=== PATIENT | male | born 1950 | race Asian ===

== ENCOUNTER 2025-03-16 13:04 | Outpatient (AMB) | payer BC, SELFPAY ==
--- NOTE | 2025-03-16 13:11 | A.OFFPC_ITS ---
Vital Signs 03/16/25 13:13 Height 5 ft 8.5 in Weight 167 lb 6 oz BMI 25.1 BP 110/68 Blood Pressure Location Lt brachial Position Sitting Pulse 86 Pulse Source Pulse Oximeter Temp 96.6 F L Temp Source Temporal Artery Scan Pulse Oximetry (%) 97 Oxygen Delivery Method Room Air Intake Visit Reasons: Asthma Intake Note: Patient is a new patient here to establish care for Asthma, DM, Cholesterol, [place], Depression, Enlarge prostate. Transferring care from Dr Bryan Carnes ([facility]). Medical records have been requested and have received. Requesting referral to Pulmonary and Eye drHortensia Pad Machine Feeder Required: No Supervisor Production Department: Present Accompanied by: Spouse Allergies No Known Allergies Allergy (Verified 03/16/25 13:24) Medication List - Last Reconciled 03/16/25 by Saritha Murry MD albuterol sulfate 90 mcg/actuation (Ventolin HFA) 2 puffs inhalation Q6H PRN atorvastatin 20 mg PO DAILY blood sugar diagnostic (FreeStyle Lite Strips) test blood sugars once a day fluticasone propion-salmeterol 500-50 mcg/dose (Wixela Inhub) 1 inh inhalation BID lancets (FreeStyle Lancets) test blood sugar once a day latanoprost 0.005% 1 drp ophthalmic (eye) DAILY metformin 1,000 mg PO BID montelukast 10 mg PO BEDTIME paroxetine HCl 30 mg PO DAILY semaglutide (Ozempic) 2 mg subcut QWEEK tamsulosin 0.4 mg PO DAILY Tobacco use date assessed: 03/16/25 Fall risk assessment: No Falls in past year Last assessed Fall Risk: 03/16/25 Dental Screening Dental Screen Date: 03/16/25 Did you have a dental visit in the last 12 months?: No Did you have a dental problem in the last 6 months where you did not have access to dental care?: No Was dental information given to patient?: No HPI HPI Comments History of Present Illness Details Patient is a 74-year-old male with a history of asthma, type 2 diabetes, hyperlipidemia, depression, BPH presenting to establish care. The patient has a long-standing history of asthma, managed with a Wixela inhaler twice daily and an albuterol inhaler as needed. He reports frequent use of his albuterol inhaler, sometimes up to 4-5 times per day, though not every day. Reportedly, previous workups included sputum samples that were negative, an evaluation in 2020 that suggested cat allergies which the patient doubts, and a later evaluation in [place] that identified and treated a mycobacterial infection without symptom resolution. The patient also has a history of type 2 diabetes mellitus, managed with metformin 1 g twice daily and Ozempic 2 mg weekly. His last HbA1c in January 2025 was 5.8%. His last diabetic eye exam was one to two years ago. His other chronic conditions include hyperlipidemia treated with atorvastatin 20 mg, depression treated with paroxetine 30 mg, and benign prostatic hyperplasia treated with tamsulosin. His father has a history of prostate cancer in his father at age 90. The patient denies any history of smoking and denies use of marijuana or other illicit drugs. He reports drinking one glass of wine approximately three times a week. He is up to date on his pneumonia vaccinations but declined a flu shot for this season. [facility] Surgical History (Updated 03/16/25 @ 13:32 by DONOVAN Ruby) History of wisdom tooth extraction Social History (Updated 03/16/25 @ 13:32 by DONOVAN Ruby) Housing: Apartment Alcohol intake: current Alcohol intake frequency: a few times a week Alcohol type: wine Patient Tobacco Use Status: Never used Tobacco e-Cigarette/Vaping Use: Never Used Second Hand Smoke Exposure: No service: No Current occupational status: retired Cognitive needs: No Hearing needs: Yes (Hearing aide) Vision needs: Yes (Glasses) Questionnaire PHQ-9 Over the last 2 weeks, how often have you been bothered by any of the following problems? 1. Little interest or pleasure in doing things: not at all 2. Feeling down, depressed, or hopeless: not at all 3. Trouble falling or staying asleep, or sleeping too much: not at all 4. Feeling tired or having little energy: not at all 5. Poor appetite or overeating: not at all 6. Feeling bad about yourself - or that you are a failure or have let yourself or your family down: not at all 7. Trouble concentrating on things, such as reading the newspaper or watching television: not at all 8. Moving or speaking so slowly that other people could have noticed. Or the opposite - being so fidgety or restless that you have been moving around a lot more than usual: not at all 9. Thoughts that you would be better off or of hurting yourself in some way: not at all Total score: 0 Depression Screening Interpretation: Negative Depression Screening Done: Yes Source: Developed by Drs. Erasmo Lott, Lizet Ruth, Mario Perez and colleagues, with an educational clifford from [employer]. Thrive Questionnaire Date Thrive assessed: 03/16/25 I am a: Patient What is your living situation today?: I have a steady place to live Within the past 12 months, did the food you bought not last and you didn't have the money to get more?: Never true Within the past 12 months, did you worry whether your food would run out before you got money to buy more?: Never true Do you have trouble paying for medicines?: No Do you have trouble getting transportation to medical appointments?: No Do you have trouble paying your heating and electricity bill?: No Do you have trouble taking care of your child, family member or friend?: No Do you have trouble with day-to-day activities such as bathing, preparing meals, shopping, managing finances, etc.?: No Are you currently unemployed and looking for a job?: No Are you interested in more education?: No Please select the resources that you would like help with: None Currently or been in a relationship where the following occur: No concerns reported THRIVE Score: 0 AUDIT C Alcohol Use Questionnaire (AUDIT-C) 1. How often do you have a drink containing alcohol?: 2-3 times a week 2. How many drinks containing alcohol do you have on a typical day when you are drinking?: 1 or 2 3. How often do you have six or more drinks on one occasion?: Never Total Score: 3 REGGIE-7 AMB Questionnaire REGGIE-7 Date REGGIE - 7 assessed: 03/16/25 Feeling nervous, anxious, or on edge: 0 = Not at all Not being able to stop or control worryin = Not at all Worrying too much about different things: 0 = Not at all Trouble relaxin = Not at all Being so restless that it is hard to sit still: 0 = Not at all Becoming easily annoyed or irritable: 0 = Not at all Feeling afraid as if something awful might happen: 0 = Not at all Total REGGIE-7 score (0-4 normal; 5-9 mild; 10-14 moderate; 15-21 severe): 0 Source: Developed by Drs. Erasmo Lott, Lizet Ruth, Mario Perez and colleagues, with an educational clifford from [employer]. Physical exam (Primary Care) Vital Signs: Last Vital Signs Temp 96.6 F L 03/16/25 13:13 Pulse 86 03/16/25 13:13 BP 110/68 03/16/25 13:13 Pulse Ox 97 03/16/25 13:13 Oxygen Delivery Method Room Air 03/16/25 13:13 General: Well-appearing, alert, oriented ?3, in no acute distress. Cardiovascular: RRR, S1-S2 appreciated, no murmurs, rubs or gallops. Respiratory: Diffuse expiratory wheezes appreciated on lung auscultation, no wheezes, rales or rhonchi. BMI result Body Mass Index 25.1 Tobacco/Smoking Status: Tobacco use Status Tobacco use date assessed 03/16/25 03/16/25 13:34 Patient Tobacco Use Status Never used Tobacco 03/16/25 13:34 e-Cigarette/Vaping Use Never Used 03/16/25 13:34 PHQ-9: PHQ-9 Score PHQ-9: Total score 0 03/16/25 13:34 Depression Screening Interpretation: Negative Thrive Assessment: Date of Thrive Assessment Date Thrive assessed 03/16/25 03/16/25 13:34 Currently or been in a relationship where the following occur: No concerns reported Coding Level of Care Code New Pt Level 4 (65041) Diagnoses Type 2 diabetes mellitus without complication, without long-term current use of insulin E11.9 Diabetes mellitus research hydrologist insulin use: without research hydrologist use Diabetes mellitus complication status: without complication Hyperlipidemia, unspecified hyperlipidemia type E78.5 Hyperlipidemia type: unspecified Uncomplicated asthma, unspecified asthma severity, unspecified whether persistent J45.909 Asthma severity: unspecified severity Asthma persistence: unspecified Asthma complication type: uncomplicated Depression, unspecified depression type F32.A Depression Type: unspecified Benign prostatic hyperplasia, unspecified whether lower urinary tract symptoms present N40.0 Lower urinary tract symptom presence: unspecified whether lower urinary tract symptoms present Assessment & Plan Assessment & Plan (1) Type 2 diabetes mellitus: Code(s): E11.9 - Type 2 diabetes mellitus without complications Category: Medical Qualifiers: Diabetes mellitus research hydrologist insulin use: without research hydrologist use Diabetes mellitus complication status: without complication Qualified Code(s): E11.9 - Type 2 diabetes mellitus without complications Plan: On metformin 1000 mg b.i.d. and Ozempic 2 mg weekly January 2025: A1c was 5.8, urine microalbumin with a normal limit Last eye exam was more than a year ago Refer to Ophthalmology for diabetic eye exam (2) Hyperlipidemia: Code(s): E78.5 - Hyperlipidemia, unspecified Category: Medical Qualifiers: Hyperlipidemia type: unspecified Qualified Code(s): E78.5 - Hyperlipidemia, unspecified Plan: On atorvastatin 20 mg Lipid panel from January 2025 within normal limits (3) Asthma: Code(s): J45.909 - Unspecified asthma, uncomplicated Category: Medical Qualifiers: Asthma severity: unspecified severity Asthma persistence: unspecified Asthma complication type: uncomplicated Qualified Code(s): J45.909 - Unspecified asthma, uncomplicated Plan: Currently on Wixela inhaler twice daily and albuterol as needed. Patient reports frequent use of his albuterol inhaler. Physical exam notable for mild expiratory wheezes. Referral to pulmonology provided for further evaluation management optimization Patient reports he is up-to-date with pneumonia vaccine. Declines flu vaccine today. (4) Depression: Code(s): F32.A - Depression, unspecified Category: Medical Qualifiers: Depression Type: unspecified Qualified Code(s): F32.A - Depression, unspecified Plan: On paroxetine 30 mg daily. PHQ-9 score today of 0 (5) BPH (benign prostatic hyperplasia): Code(s): N40.0 - Benign prostatic hyperplasia without lower urinary tract symptoms Category: Medical Qualifiers: Lower urinary tract symptom presence: unspecified whether lower urinary tract symptoms present Qualified Code(s): N40.0 - Benign prostatic hyperplasia without lower urinary tract symptoms Plan: On tamsulosin 0.4 mg daily PSA from June 2023 was within normal limits Orders: Referrals Pulmonology Referral J45.909 - Unspecified asthma, uncomplicated Ophthalmology Referral E11.9 - Type 2 diabetes mellitus without complications, Z01.00 - Encounter for examination of eyes and vision without abnormal findings
[2025-03-16 13:13] VITALS: BP 110/68; PULSE 86; TEMP 35.9; O2SAT 97; BMI 25.1
--- OUTSIDE RECORDS SUMMARY | 2025-03-16 16:58 | XMS_ITS | Encounter Summary ---
Author Organization [facility] Address [address] [place] [address] Care Team Providers Care Automatic Blocker Name Role Phone Jazmín Charlton MD Primary Care Provider [phone] Reason for Visit * Reason Comments Medication Refill Encounter Details Date Type Department Care Team (Late st Contact Info) Description 08/30/2020 Refill [facility] [place] [address] [place] [address] Jazmín Charlton MD [address] [facility] [address] [place] [address] Medication Refill Social History Tobacco Use Types Packs/Day Years Used Date Smoking Tobacco: Never Smokeless Tobacco: Never Alcohol Use Standard Drinks/Week Comments Not Currently 0 (1 standard drink = 0.6 oz pur e alcohol) PHQ-2 Answer Date Recorded PHQ-2 Total Score 0 01/22/2020 Sex and Gender Information Value Date Recorded Sex Assigned at Male 03/21/2020 3:41 AM EST Legal Sex Male 12:52 PM EDT Gender Identity Male 03/21/2020 3:41 AM EST Sexual Orientation Not on file documented as of this encounter Miscellaneous Notes * Telephone Encounter - Naila Rm - 08/31/2020 8:16 AM EDT Last visit 02/2020; appointment 01/2021 documented in this encounter Plan of Treatment Not on file documented as of this encounter Visit Diagnoses Diagnosis Gout, unspecified cause, unspecified chronicity, unspecified site documented in this encounter Additional Health Concerns Assessment Noted Time PHQ-9 Depression Total Score: 0 01/22/20 20 8:19 AM EST documented as of this encounter Care Teams Automatic Blocker Relationship Specialty Start Date End Date Jazmín Charlton MD [address] [address] [place] [phone] PCP - General Internal Medicine 11/17/19 01/16/21 documented as of this encounter
--- OUTSIDE RECORDS SUMMARY | 2025-03-16 16:58 | XMS_ITS | Encounter Summary ---
Author Organization [facility] Address [address] [place] [address] Care Team Providers Care Hospital Food Service Worker Name Role Phone Jazmín Charlton MD Primary Care Provider [phone] Encounter Details Date Type Department Care Team (Late st Contact Info) Description 02/16/2020 Scanned Document [facility] [place] [address] [place] [address] Jazmín Charlton MD [address] [address] Social History Tobacco Use Types Packs/Day Years [...] on file documented as of this encounter Plan of Treatment Not on file documented as of this encounter Visit Diagnoses Not on filedocumented in this encounter Additional Health Concerns Assessment Noted Time PHQ-9 Depression Total Score: 0 01/22/20 20 8:19 AM EST documented as of this encounter Care Teams Hospital Food Service Worker Relationship Specialty Start Date End Date Jazmín Charlton MD [address] [address] PCP - General Internal Medicine 11/17/19 01/16/21 documented as of this encounter
--- OUTSIDE RECORDS SUMMARY | 2025-03-16 16:58 | XMS_ITS | Encounter Summary ---
Author Organization [facility] Address [address] [place] [address] Care Team Providers Care Casting Carrier Name Role Phone Unavailable Primary Care Provider Unavailabl e Reason for Visit * Reason Comments Medication Refill Encounter Details Date Type Department Care Team (Late st Contact Info) Description 01/25/2021 Refill [facility] [place] [address] [place] [address] Jazmín Charlton MD [address] [facility] [address] [place] [address] Medication Refill Social History Tobacco [...] encounter Miscellaneous Notes * Telephone Encounter - Fabiola Jimenez - 01/27/2021 7:01 AM EST not your patient * Telephone Encounter - Beverley Bond - 01/26/2021 8:20 AM EST Pt was last seen 02/19/20 documented in this encounter Plan of Treatment Not on file documented as of this encounter Visit Diagnoses Diagnosis Gout, unspecified cause, unspecified chronicity, unspecified site documented in this encounter Additional Health Concerns Assessment Noted Time PHQ-9 Depression Total Score: 0 01/22/20 8:19 AM EST documented as of this encounter
--- OUTSIDE RECORDS SUMMARY | 2025-03-16 16:58 | XMS_ITS | Encounter Summary ---
Author Organization [facility] Address [address] [place] [address] Care Team Providers Care Grinder Set Up Operator Thread Tool Name Role Phone Jazmín Charlton MD Primary Care Provider [phone] Encounter Details Date Type Department Care Team (Late st Contact Info) Description 01/25/2020 Scanned Document [facility] [place] [address] [place] [address] External, Provider Social History Tobacco Use Types Packs/Day Years [...] on file documented as of this encounter Procedures Procedure Name Priority Date/Time Associated Diagnosis Comments COLONOSCOPY Routine 01/29/2017 documented in this encounter Results * HM COLONOSCOPY (01/29/2017) us Provider External HEALTH MAINTENANCE Final Resul t documented in this encounter Visit Diagnoses Not on filedocumented in this encounter Additional Health Concerns Assessment Noted Time PHQ-9 Depression Total Score: 0 01/22/20 20 8:19 AM EST documented as of this encounter Care Teams Grinder Set Up Operator Thread Tool Relationship Specialty Start Date End Date Jazmín Charlton MD [address] [facility] [address] [place] [id number] PCP - General Internal Medicine 11/17/19 01/16/21 documented as of this encounter
--- OUTSIDE RECORDS SUMMARY | 2025-03-16 16:58 | XMS_ITS | Encounter Summary ---
Author Organization [facility] Address [address] [place] [address] Care Team Providers Care Director Of Integrated Marketing Name Role Phone Jazmín Charlton MD Primary Care Provider [phone] Reason for Visit * Reason Comments Medication Refill Encounter Details Date Type Department Care Team (Late st Contact Info) Description 04/29/2020 Refill [facility] [place] [address] [place] [address] Jazmín Charlton MD [address] [facility] [address] [place] [address] Medication Refill Social History Tobacco [...] * Telephone Encounter - Naila Rm - 04/29/2020 7:51 AM EST Last visit 02/19/2020; appointment 01/24/2021 documented in this encounter Plan of Treatment Not on file documented as of this encounter Visit Diagnoses Diagnosis Type 2 diabetes mellitus without complication, with long-term current use of insulin (HC CODE) documented in this encounter Additional Health Concerns Assessment Noted Time PHQ-9 Depression Total Score: 0 01/22/20 20 8:19 AM EST documented as of this encounter Care Teams Director Of Integrated Marketing Relationship Specialty Start Date End Date Jazmín Charlton MD [address] [facility] [address] [place] [phone] PCP - General Internal Medicine 11/17/19 01/16/21 documented as of this encounter
--- OUTSIDE RECORDS SUMMARY | 2025-03-16 16:58 | XMS_ITS | Encounter Summary ---
Author Organization [facility] Address [address] [place] [address] Care Team Providers Care Craft Demonstrator Name Role Phone Jazmín Charlton MD Primary Care Provider [phone] Reason for Visit * Reason Comments Medication Refill Encounter Details Date Type Department Care Team (Late st Contact Info) Description 12/14/2020 Refill [facility] [place] [address] [place] [address] Jazmín Charlton MD [address] [facility] [address] [place] [address] Medication Refill Social History Tobacco [...] encounter Miscellaneous Notes * Telephone Encounter - Yesenia Montano - 12/15/2020 9:10 AM EDT Last office visit: 02/19/2020 Next office visit: 01/24/2021 Lab Results Component Value Date HGBA1C 6.5 01/18/2020 Lab Results Component Value Date GLU 157 (H) 01/18/2020 CREATININE 0.98 01/18/2020 Lab Results Component Value Date WBC 5.0 01/18/2020 HGB 12.8 (L) 01/18/2020 HCT 44.8 01/18/2020 MCV 77.9 (L) 01/18/2020 PLT 252 01/18/2020 Lab Results Component Value Date NA 143 01/18/2020 K 4.5 01/18/2020 AST 13 01/18/2020 ALT 36 01/18/2020 Lab Results Component Value Date TSH 3.260 01/18/2020 [id number] [place] [place] - [facility] documented in this encounter Plan of Treatment Not on file documented as of this encounter Visit Diagnoses Not on filedocumented in this encounter Additional Health Concerns Assessment Noted Time PHQ-9 Depression Total Score: 0 01/22/20 20 8:19 AM EST documented as of this encounter Care Teams Craft Demonstrator Relationship Specialty Start Date End Date Jazmín Charlton MD [address] [phone] PCP - General Internal Medicine 11/17/19 01/16/21 documented as of this encounter
--- OUTSIDE RECORDS SUMMARY | 2025-03-16 16:58 | XMS_ITS | Encounter Summary ---
Author Organization [facility] Address [address] [place] [address] Care Team Providers Care Behavioral Psychologist Name Role Phone Jazmín Charlton MD Primary Care Provider [phone] Reason for Visit * Reason Comments Medication Refill Encounter Details Date Type Department Care Team (Late st Contact Info) Description 10/31/2020 Refill [facility] [place] [address] [place] [address] Jazmín Charlton MD [address] [facility] [address] [place] [address] Medication Refill Social History Tobacco [...] * Telephone Encounter - Naila Rm - 10/31/2020 11:58 AM EDT Last visit 02/2020; appointment 01/2021 [...] documented as of this encounter Care Teams Behavioral Psychologist Relationship Specialty Start Date End Date Jazmín Charlton MD [address] [facility] [address] [place] [address] PCP - General Internal Medicine 11/17/19 01/16/21 documented as of this encounter
--- OUTSIDE RECORDS SUMMARY | 2025-03-16 16:58 | XMS_ITS | Encounter Summary ---
Author Organization [facility] Address [address] [place] [address] Care Team Providers Care Pharmacist Assistant Name Role Phone Jazmín Charlton MD Primary Care Provider + [phone] Reason for Visit * Reason Comments Medication Refill Encounter Details Date Type Department Care Team (Late st Contact Info) Description 08/17/2020 Refill [facility] [place] [address] [place] [address] Jazmín Charlton MD [address] [place] [address] [place] [address] Medication Refill Social History Tobacco Use Types [...] documented as of this encounter Care Teams Pharmacist Assistant Relationship Specialty Start Date End Date Jazmín Charlton MD [address] [place] [address] [place] [address] PCP - General Internal Medicine 11/17/19 01/16/21 documented as of this encounter
--- OUTSIDE RECORDS SUMMARY | 2025-03-16 16:58 | XMS_ITS | Encounter Summary ---
Author Organization [facility] Address [address] [place] [address] Care Team Providers Care Graves Registration Specialist Name Role Phone Jazmín Charlton MD Primary Care Provider [phone] Reason for Visit * Reason Comments Medication Refill Encounter Details Date Type Department Care Team (Late st Contact Info) Description 04/01/2020 Refill [facility] [place] [address] [place] [address] Jazmín Charlton MD [address] [facility] [address] [place] [address] Medication Refill Social History Tobacco [...] encounter Miscellaneous Notes * Telephone Encounter - aNila Rm - 04/01/2020 8:28 AM EST Last visit 02/19/2020; appointment 01/24/2021 documented in this encounter Plan of Treatment Not on file documented as of this encounter Visit Diagnoses Diagnosis Gout, unspecified cause, unspecified chronicity, unspecified site documented in this encounter Additional Health Concerns Assessment Noted Time PHQ-9 Depression Total Score: 0 01/22/20 20 8:19 AM EST documented as of this encounter Care Teams Graves Registration Specialist Relationship Specialty Start Date End Date Jazmín Charlton MD [address] [facility] [address] [place] [address] PCP - General Internal Medicine 11/17/19 01/16/21 documented as of this encounter
--- OUTSIDE RECORDS SUMMARY | 2025-03-16 16:58 | XMS_ITS | Encounter Summary ---
Author Organization [facility] Address [address] [place] [address] Care Team Providers Care Kennel Supervisor Name Role Phone Jazmín Charlton MD Primary Care Provider [phone] Reason for Visit * Reason Comments Medication Refill Encounter Details Date Type Department Care Team (Late st Contact Info) Description 01/09/2021 Refill [facility] [place] [address] [place] [address] Jazmín Charlton MD [address] [facility] [address] [place] [address] Medication Refill Social History Tobacco [...] * Telephone Encounter - Fabiola Jimenez - 01/09/2021 3:17 PM EDT Message from the Clamshell Operator - MEDICATION REFILLS Time of Call: 3:17 PM Confirmed w/ Patient Preferred Pharmacy: [facility]/pharmacy #[id number] - [place], [place] - [address] [facility] [address] [place] Last office visit: 02/19/2020 Next office visit: 01/24/2021 Please give us 24 hours to respond to your request. Patient was reminded to contact their preferred pharmacy for further electronic refills. Patient was encouraged to set up a [employer] account to request electronic refills in the future. Forward this message to CLIFFORD Ramires. documented in this encounter Plan of Treatment Not on file documented as of this encounter Visit Diagnoses Not on filedocumented in this encounter Additional Health Concerns Assessment Noted Time PHQ-9 Depression Total Score: 0 01/22/20 20 8:19 AM EST documented as of this encounter Care Teams Kennel Supervisor Relationship Specialty Start Date End Date Jazmín Charlton MD [address] [id number] PCP - General Internal Medicine 11/17/19 01/16/21 documented as of this encounter
--- OUTSIDE RECORDS SUMMARY | 2025-03-16 16:58 | XMS_ITS | Encounter Summary ---
Author Organization [facility] Address [address] [place] [address] Care Team Providers Care Railway Signalling Engineer Name Role Phone Unavailable Primary Care Provider Unavailabl e Reason for Visit * Reason Comments Medication Refill Encounter Details Date Type Department Care Team (Late st Contact Info) Description 02/26/2021 Refill [facility] [place] [address] [place] [address] [facility]azmín [facility]ton MD [address] [facility] [address] [place] [address] Medication Refill Social History Tobacco [...] * Telephone Encounter - Fabiola Jimenez - 02/27/2021 9:22 AM EST No ;onger your patient * Telephone Encounter - Fabiola Jimenez - 02/27/2021 9:20 AM EST Message from the Financial Reporting Specialist - MEDICATION REFILLS Time of Call: 9:20 AM Confirmed w/ Patient Preferred Pharmacy: [id number] - [place], [place] - [address] [facility] [employer] [place] Not a patient Please give us 24 hours to respond to your request. Patient was reminded to contact their preferred pharmacy for further electronic refills. Patient was encouraged to set up a [employer] account to request electronic refills in the [...]
--- OUTSIDE RECORDS SUMMARY | 2025-03-16 16:58 | XMS_ITS | Clinical Summary ---
Author Organization [address] Address [address] [place] [address] Phone Care Team Providers Care Skirt Maker Name Role Phone Unavailable Primary Care Provider Unavailabl e Allergies Active Allergy Reactions Criticality Noted Date Comments Hay Fever And Allergy Relief Congestion 020 Penicillins Unknown 12/01/2018 Medications ADVAIR DISKUS 500-50 mcg/dose blister powder for inhalation 0 Active albuterol sulfate 90 mcg/actuation HFA aerosol inhaler 0 Active lancets Daily Use as directed. Delca lancet 100 each 3 0 Active lancets 30 gauge Misc lancetsIndicatio ns:Type 2 diabetes mellitus without complication, with long-term current use of insulin (HC CODE) Test glucose daily Dx E11.8 100 each 3 1 Active blood sugar diagnostic test stripsIndication s:Type 2 diabetes mellitus without complication, with long-term current use of insulin (HC CODE) Test glucose Daily Dx: E11.8 100 each 3 1 Active allopurinoL (ZYLOPRIM) 300 mg tabletIndication s:Gout, unspecified cause, unspecified chronicity, unspecified site TAKE 1 TABLET EVERY DAY 90 tablet 1 1 Active metFORMIN (GLUCOPHAGE) 1000 mg tabletIndication s:Type 2 diabetes mellitus without complication, with long-term current use of insulin (HC CODE) TAKE 1 TABLET TWICE DAILY WITH BREAKFAST AND WITH DINNER 180 tablet 1 1 Active PARoxetine (PAXIL) 20 mg tablet TAKE 1 TABLET EVERY MORNING 90 tablet 1 Active montelukast (SINGULAIR) 10 mg tablet TAKE 1 TABLET EVERY NIGHT 90 tablet 1 1 Active Active Problems Problem Noted Date Diagnosed Date Asthma 09/08/2018 Diabetes 08/09/2017 Radial styloid tenosynovitis 08/09/2017 Acute depression 08/09/2017 Immunizations Immunization Administration Dates Next Due Influenza, quad, adjuvanted, 0.5mL, preservative free 11/27/2019 Pneumococcal polysaccharide PPSV23 11/20/2019 ZOSTER RECOMBINANT (Shingrix) 12/14/2019 Social History Tobacco Use Types Packs/Day Years [...] AM EST Sexual Orientation Not on file Last Filed Vital Signs Vital Sign Reading Time Taken Comments Blood Pressure 132/80 01/22/2020 8:19 AM EST Pulse 77 01/22/2020 8:19 AM EST Temperature - - Respiratory Rate 18 01/22/2020 8:19 AM EST Oxygen Saturation 96% 01/22/2020 8:19 AM EST Inhaled Oxygen Concentration - - Weight 86.2 kg (190 lb) 01/22/2020 8:19 AM EST Height 174 cm (5' 8.5 ) 01/22/2020 8:19 AM EST Body Mass Index 28.47 01/22/2020 8:19 AM EST Plan of Treatment Health Maintenance Due Date Last Done Comments HIV screening 11/04/1963 Pneumococcal Vaccine (50+ years) (2 of 2 - PCV) 11/19/2020 11/20/2019 Diabetes screening 01/17/2023 01/18/2020, 01/18/2020 Influenza vaccine 10/16/2024 11/27/2019 Covid-19 vaccine series (3 - 2024- season) 2024 05/25/2020, 04/26/2020 Lipid disorder screening 01/17/2025 01/18/2020 RSV Immunization (1 - 1-dose 75+ series) 11/04/2026 Colon cancer screening, Colonoscopy 01/29/2027 01/29/2017 Tetanus adult (Td q 10,TDAP once) 10/10/2030 10/10/2020 Shingles vaccine (Shingrix) Completed 02/15, 12/14/2019 Hepatitis C screening Discontinued Meningococcal B Vaccine Aged Out No l onger eligible based on patient's age to complete this topic Meningococcal Vaccine Aged Out No dallin kiko eligible based on patient's age to complete this topic Procedures Procedure Name Priority Date/Time Associated Diagnosis Comments HEMOGLOBIN A1C Routine 01/18/2020 8:30 AM EST Type 2 diabetes mellitus without complication, with long-term current use of insulin LIPID PANEL Routine 01/18/2020 8:30 AM EST Type 2 diabetes mellitus without complication, with long-term current use of insulin HM COLONOSCOPY Routine 01/29/2017 from Last 3 Months or Most Recently Relevant to Health Maintenance Results * Hemoglobin A1c (01/18/2020 8:30 AM EST) Hemoglobin A1c 6.5 See Comment % 01/18/2020 12:52 PM [facility] DEPARTMENT OF PATHOLOGY Comment: The [place] [employer], 2012 Diagnosis and Classification of Diabetes Mellitus: Hemoglobin A1c 5.7 - 6.4% - Increased risk for diabetes >= 6.5% - Diagnostic of diabetes Blood Venipuncture / Unknown 01/18/2020 8:30 AM EST 01/18/2020 8:30 AM EST Jazmín Charlton MD LAB BLOOD ORDERABLES Yamilka flores Result [facility] DEPARTMENT OF PATHOLOGY [address] [place] [address] * (ABNORMAL) Lipid panel (01/18/2020 8:30 AM EST) Cholesterol 182 50 - 200 mg/dL 01/18/2020 12:33 PM [facility] DEPARTMENT OF PATHOLOGY HDL 43 40 - 90 mg/dL 01/18/2020 12:33 PM [facility] DEPARTMENT OF PATHOLOGY Triglycerides 298(H) 30 - 200 mg/dL 01/18/2020 12:33 PM [facility] DEPARTMENT OF PATHOLOGY Chol/HDL Ratio 4.2(H) 1.0 - 3.9 01/18/2020 12:33 PM EST [facility] DEPARTMENT OF PATHOLOGY LDL Calculated 79 20 - 130 mg/dL 01/18/2020 12:33 PM EST [facility] DEPARTMENT OF PATHOLOGY Blood Venipuncture / Unknown 01/18/2020 8:30 AM EST 01/18/2020 8:30 AM EST Jazmín Charlton MD LAB BLOOD ORDERABLES Yamilka l Result [facility] DEPARTMENT OF PATHOLOGY [address] [place] [address], [facility] [phone] * COLONOSCOPY (01/29/2017) us Provider External HEALTH MAINTENANCE Final Resul t from Last 3 Months or Most Recently Relevant to Health Maintenance Insurance MEDICARE [facility] MEDICARE [facility] MEDICARE [facility]
--- OUTSIDE RECORDS SUMMARY | 2025-03-16 16:58 | XMS_ITS | Encounter Summary ---
Author Organization [facility] Health Address [address] [place] [address] Care Team Providers Care Paralegal Internship Name Role Phone Jazmín Charlton MD Primary Care Provider [phone] Reason for Visit * Reason Onset Date Comments Medication Refill 05/31/2020 Encounter Details Date Type Department Care Team (Late st Contact Info) Description 05/31/2020 Refill [facility] Internal Medicine [place] [address] [place] [place], [place] [id number] Jazmín Charlton MD [address] [facility] [address] [place] [address] Medication Refill Social History Tobacco [...] encounter Miscellaneous Notes * Telephone Encounter - Rm Naila - 06/20/2020 8:13 AM EDT ----- Message from Beck Sneed sent at 06/20/2020 7:30 AM EDT ----- Regarding: Non-Urgent Medical Question Contact: I had requested a diagnostic code be sent to [facility] on [address] for my test strips and lancets (One Touch Ultra and Delica). Has this been done? Thanks. * Telephone Encounter - Naila Rm - 05/31/2020 8:22 AM EDT Last visit 02/2020; appointment 01/2021 ----- Message from Beck Sneed sent at 05/30/2020 2:50 PM EDT ----- Regarding: Non-Urgent Medical Question Contact: I need a new script sent to [facility] ([facility] [address], [facility], ) for my test strips (One Touch Ultra) and lancets (One Touch Delica lancelets (30 ga). Pls call or text me at [phone] if there are any questions. Beck documented in this encounter Plan of Treatment Not on file documented as of this encounter Visit Diagnoses Diagnosis Type 2 diabetes mellitus without complication, with long-term current use of insulin (HC CODE)- Primary documented in this encounter Additional Health Concerns Assessment Noted Time PHQ-9 Depression Total Score: 0 01/22/20 20 8:19 AM EST documented as of this encounter Care Teams Paralegal Internship Relationship Specialty Start Date End Date Jazmín Charlton MD [address] [facility] [address] [place] [address] PCP - General Internal Medicine 11/17/19 01/16/21 documented as of this encounter
== END 2025-03-16 13:59 | disposition home or self-care (01) ==
LOC: HO.HMCH 13:06
PROVIDERS: PCP Student in an Organized Health Care Education/Training Program; Visit Provider Student in an Organized Health Care Education/Training Program
DX: E11.9 Type 2 diabetes mellitus without complications (principal); E78.5 Hyperlipidemia, unspecified; J45.909 Unspecified asthma, uncomplicated; F32.A Depression, unspecified; N40.0 Benign prostatic hyperplasia without lower urinary tract symptoms